=== PATIENT | female | born 1970 | race Caucasian/White ===

== ENCOUNTER → 2017-07-25 | Outpatient (CLI) | payer OTHER ==
--- NOTE | 2017-07-25 16:34 | CT ---
EXAMINATION TYPE: CT abdomen pelvis wo con DATE OF EXAM: 07/25/2017 COMPARISON: NONE INDICATION: Pelvic pain with episodes of hematuria. DLP: 891 mGycm, Automated exposure control for dose reduction was used. CONTRAST: None Study performed without Oral Contrast TECHNIQUE: Axial images were obtained from above the diaphragm to the pubic rami in the axial plane a t 5 mm thick sections. Reconstructed images are reviewed on the computer in the coronal plane. FINDINGS: Limited CT sections are obtained the lung bases. The lung bases are clear. CT ABDOMEN: Liver: Normal Spleen: Normal Pancreas: Normal Adrenal glands: The adrenal glands are normal. Gallbladder: Normal Kidneys: No masses are evident. No hydronephrosis is present. No cysts are present. Delayed images were obtained through the kidneys, which remain unremarkable. Aorta: Normal Inferior vena cava: Normal. CT PELVIS: Loops of bowel within the abdomen and pelvis are normal. Studies performed without oral contrast limiting bowel loop evaluation. Appendix: An appendicolith is at the expected origin of the appendix. The distal appendix appears unr emarkable. No inflammatory changes are evident. No abnormal fluid collections are evident. Urinary bladder: Normal. Genitourinary structures: Uterus and adnexal regions are unremarkable. Osseous structures: No suspicious lytic or sclerotic lesions. IMPRESSIONS: 1. Appendicolith. No suspicious acute appendicitis is evident.
== END | disposition home or self-care (01) ==
LOC: RADCTMAIN 15:57
PROVIDERS: ATTEND Nurse Practitioner Adult Health
DX: K38.1 Appendicular concretions (principal)
CPT/HCPCS: 74176

== ENCOUNTER → 2017-07-26 | Outpatient (CLI) | payer OTHER ==
--- NOTE | 2017-07-26 13:54 | US ---
EXAMINATION TYPE: US transvaginal DATE OF EXAM: 07/26/2017 COMPARISON: CT CLINICAL HISTORY: R10.2 pelvic pain. Pt states back/pelvic pain TECHNIQUE: Transvaginal (TV). Date of LMP: 06/04/2017, pt states this is normal for her EXAM MEASUREMENTS: Uterus: 9.9 x 4.6 x 5.5 cm Endometrial Stripe: 0.5 cm Right Ovary: 2.5 x 1.5 x 1.8 cm Left Ovary: 2.2 x 1.6 x 1.9 cm 1. Uterus: Anteverted Heterogeneous with two small probable fibroids 1)= 1.8 x 1.5 x 1.8 cm adjace nt to endo, and 2)= 1.3 x 0.9 x 1.6 cm 2. Endometrium: wnl 3. Right Ovary: wnl 4. Left Ovary: wnl 5. Bilateral Adnexa: wnl 6. Posterior cul-de-sac: wnl Results called to Tammi at 's office at time of exam IMPRESSION: 1. Heterogenous myometrium with 2 probable uterine leiomyomas. The first is intramural measuring 0.6 cm and the second is either intramural or submucosal measuring 1.8 cm. 2. Endometrium and ovaries are unremarkable.
== END | disposition home or self-care (01) ==
LOC: RADUSWWP 13:09
PROVIDERS: ATTEND Nurse Practitioner Adult Health
DX: R93.8 Abnormal findings on diagnostic imaging of other specified body structures (principal); R10.2 Pelvic and perineal pain
CPT/HCPCS: 76830

== ENCOUNTER → 2021-01-19 | Outpatient (CLI) | payer OTHER ==
--- NOTE | 2021-01-20 12:07 | MM ---
Reason for exam: clinical finding. History: Patient is postmenopausal. Family history of breast cancer in maternal aunt at age 50. Indicated problem(s): pain in both breasts. Physical Findings: Nurse did not find any significant physical abnormalities on exam. MG 3D Diag Mammo W/Cad PILO Bilateral CC and MLO view(s) were taken. The breast tissue is heterogeneously dense. This may lower the sensitivity of mammography. A few tiny benign oil cyst calcifications. No significant new findings when compared with previous films. These results were verbally communicated with the patient and result sheet given to the patient on 01/19/21. ASSESSMENT: Negative, BI-RAD 1 RECOMMENDATION: Routine screening mammogram of both breasts in 1 year. Manage on a clinical basis with regard to right breast pain.
== END | disposition home or self-care (01) ==
LOC: RADMAMWWP 14:50
PROVIDERS: ATTEND Family Medicine
DX: R92.2 Inconclusive mammogram (principal); R92.1 Mammographic calcification found on diagnostic imaging of breast; Z78.0 Asymptomatic menopausal state; Z80.3 Family history of malignant neoplasm of breast
CPT/HCPCS: 77062; 77066